=== PATIENT | male | born 1955 | race Caucasian/White ===

== ENCOUNTER 2021-02-06 13:07 | Emergency (ER) | payer SELFPAY ==
[2021-02-06 13:15] VITALS: BP 119/73; PULSE 81
[2021-02-06] MEDS ORDERED: Lidocaine 2% with EPINEPHrine 1:100,000 20 ML MDV INJECT ONE (13:25)
[2021-02-06] MEDS ORDERED: Diphtheria,Pertussis(Acell),Tetanus Vaccine 0.5 ML Syringe IM ONE (13:26)
--- NOTE | 2021-02-06 13:32 | EDM.PDOC ---
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 He can move the thumb. Denies other injuries. Right Finger-Thumb Pain Score (Numeric/FACES): 3 - Related Data Allergies Allergy/AdvReac Type Severity Reaction Status Date / Time No Known Allergies Allergy Verified 02/06/21 13:17 Home Meds: Home Meds . [No Known Home Meds] 02/06/21 [History] Past Medical History - Past Health History Medical/Surgical History: Denies Medical/Surgical History Social & Family History - Tobacco Use Tobacco Use Status *Q: Never Tobacco User ED ROS GENERAL - Review of Systems Review Of Systems: See Below Constitutional: Reports: No Symptoms HEENT: Reports: No Symptoms Respiratory: Reports: No Symptoms Cardiovascular: Reports: No Symptoms Endocrine: Reports: No Symptoms GI/Abdominal: Reports: No Symptoms : Reports: No Symptoms Musculoskeletal: Reports: Hand Pain Skin: Reports: Wound (Laceration left thumb region) Neurological: Reports: No Symptoms Psychiatric: Reports: No Symptoms Hematologic/Lymphatic: Reports: No Symptoms Immunologic: Reports: No Symptoms ED EXAM, SKIN/RASH Exam: See Below Exam Limited By: No Limitations General Appearance: Alert, WD/WN, No Apparent Distress (Elderly male , NAD.) Head: Atraumatic, Normocephalic Respiratory/Chest: No Respiratory Distress GI/Abdominal: Soft (Male) Exam: Deferred Rectal (Males) Exam: Deferred Extremities: Normal Inspection, Normal Range of Motion, Normal Capillary Refill, Other (Note 4cm crescent shaped laceration to base of left thumb on anterior aspect, some irregular edges. Bleeding when dressing removed. ROM normal to left thumb.) Neurological: Alert, Oriented, CN II-XII Intact, Normal Cognition, Normal Gait Psychiatric: Normal Affect Skin: Warm, Dry, Intact, Normal Color Course - Vital Signs Text/Narrative:: 1321 The patient was seen by the REGULATORY COMPLIANCE DIRECTOR. Xray was obtained to exclude fracture of t he bone. The laceration was repaired. See Procedure Note: Procedure Note Laceration Repair Following verbal consent of the patient, risks, benefits, and alternatives were reviewed. The wound on the left thumb was prepped with normal saline and then Betadine. Lidocaine with Epi 2% 7 ml was used for local anesthesia and digital block. A running suture of 4-0 Vicryl was placed in the subcutaneous tissues. Eight interrupted sutures of 4-0 Vicryl were used for wound closure. Dressing was applied. Wound care instructions were reviewed. The patient tolerated the procedure well. Last Tetanus was verified as February 2011. Tdap was given today. EBL=minimal 1415 The patient was given discharge instructions and left the ER in stable condition. Last Recorded V/S: Last Vital Signs Temp 36.8 C 02/06/21 13:07 Pulse 81 02/06/21 13:07 Resp 16 02/06/21 13:07 BP 119/73 02/06/21 13:07 Pulse Ox 97 02/06/21 13:07 - Orders/Labs/Meds Orders: Active Orders 24 hr Category Date Time Status Vaccines to be Administered [RC] PER UNIT ROUTINE Care 02/06/21 13:26 Ordered Fingers Thumb Lt FA [CR] Stat Exams 02/06/21 13:24 Ordered Meds: Medications Discontinued Medications Generic Name Dose Route Start Last Admin Trade Name Freq PRN Reason Stop Dose Admin Diphtheria/Tetanus/Acell Pertussis 0.5 ml 02/06/21 13:26 02/06/21 13:49 Diphtheria,Pertussis(Acell),Tetanus Vaccine 0.5 Ml Syringe IM 02/06/21 13:27 0.5 ml .ONCE ONE Administration Lidocaine/Epinephrine 20 ml 02/06/21 13:25 02/06/21 13:50 Lidocaine 2% With Epinephrine 1:100,000 20 Ml Mdv INJECT 02/06/21 13:26 20 ml ONETIME ONE Administration Departure - Departure Time of Disposition: 14:10 Disposition: Home, Self-Care 01 Condition: Good Clinical Impression: Accidental injury due to hand tool, Tetanus toxoid vaccination administered at current visit Laceration of left thumb Qualifiers: Encounter type: initial encounter Damage to nail status: without damage Foreign body presence: without foreign body Qualified Code(s): S61.012A - Laceration without foreign body of left thumb without damage to nail, initial encounter - Discharge Information *PRESCRIPTION DRUG MONITORING PROGRAM REVIEWED*: Not Applicable *COPY OF PRESCRIPTION DRUG MONITORING REPORT IN PATIENT ISSAC: Not Applicable Instructions: VIS, Tetanus, Diphtheria (Td); Tetanus, Diphtheria, Pertussis (Tdap) - CDC, Laceration Care, Adult, [id number] Forms: ED Department Discharge Sepsis Event Note (ED) - Evaluation Sepsis Screening Result: No Definite Risk - Focused Exam Vital Signs: Vital Signs Temp Pulse Resp BP Pulse Ox 02/06/21 13:07 36.8 C 81 16 119/73 97 - My Orders Last 24 Hours: My Active Orders 02/06/21 13:24 Fingers Thumb Lt FA [CR] Stat 02/06/21 13:26 Vaccines to be Administered [RC] PER UNIT ROUTINE - Assessment/Plan Last 24 Hours: My Active Orders 02/06/21 13:24 Fingers Thumb Lt FA [CR] Stat 02/06/21 13:26 Vaccines to be Administered [RC] PER UNIT ROUTINE Assessment:: 1)Right Thumb Laceration-4cm 2)S/P Intermediate Laceration Repair 3)Accidental Injury from Handtool 4)Tetanus Immunization Plan: -Ibuprofen 200mg 3 tablets oral every 6 hours as needed for pain -Acetaminophen 325mg 2-3 tablets oral every 4-6 hours as needed for pain -Keep dressing to wound dry and intact for 24 hours, then you may wash the wound daily with soap and water. -Watch for signs of infection and seek care at the clinic or ER if needed -The sutures that were placed today will dissolve over the next 2-3 weeks, so you do not need to return to the clinic for removal. Allow them to dissolve and and do note attempt to pick or cut them out for at least 2 weeks. -Your Tetanus was not updated at today's visit. Last TDap was February 2011.
--- NOTE | 2021-02-06 14:19 | CR ---
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 LACERATION ACROSS COMPARISON: None. DISCUSSION: A dressing somewhat obscures detail. No fracture or dislocation is identified. 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 IMPRESSION: 1. No acute osseous abnormality. Stewart Mckeon MD 02/06/21 [id number] Thank you for allowing us to participate in the care of your patient.
== END 2021-02-06 14:20 | disposition home or self-care (01) ==
LOC: VM.ED 13:07
DX: S61.012A Laceration without foreign body of left thumb without damage to nail, initial encounter (principal); Z23 Encounter for immunization; K21.9 Gastro-esophageal reflux disease without esophagitis; E11.9 Type 2 diabetes mellitus without complications; Z79.82 Long term (current) use of aspirin; Z79.899 Other long term (current) drug therapy; W26.8XXA Contact with other sharp object(s), not elsewhere classified, initial encounter; Y99.0 Civilian activity done for income or pay
CPT/HCPCS: 12002; 12042; 73140-FA; 90471; 90715; 99283; 99283-25

== ENCOUNTER 2021-03-15 01:40 | Emergency (ER) | payer SELFPAY ==
[2021-03-15] MEDS ORDERED: Polymyxin B/Trimethoprim 10 ML Bottle EARRT ONE (01:54)
--- NOTE | 2021-03-15 02:03 | EDM.PDOC ---
ED HPI GENERAL MEDICAL PROBLEM - General Chief Complaint: ENT Problem Stated Complaint: ear problem Time Seen by Provider: 03/15/21 01:40 Source of Information: Reports: Patient History Limitations: Reports: No Limitations - History of Present Illness INITIAL COMMENTS - FREE TEXT/NARRATIVE: Suman is a 66 year old male who presents to ER with feeling like something is crawling in his ear. States all day has had pressure in his ear, kept building and now feels like something is crawling. Denies any itching. Did not put any foreign objects like q-tips in his ears. Has had sinus congestion for about 3 days but nothing significant. NO fevers. Did not notice any popping sensation in his ear prior to coming to the ER. Has no pain or pressure now but is draining blood. Onset: Today, Gradual Duration: Hour(s): Location: Reports: Head Quality: Reports: Ache Severity: Mild Associated Symptoms: Reports: No Other Symptoms - Related Data Allergies Allergy/AdvReac Type Severity Reaction Status Date / Time No Known Allergies Allergy Verified 02/06/21 13:17 Home Meds: Home Meds . [No Known Home Meds] 02/06/21 [History] Past Medical History - Past Health History Medical/Surgical History: Denies Medical/Surgical History Social & Family History - Tobacco Use Tobacco Use Status *Q: Unknown Ever Used Tobacco ED ROS ENT - Review of Systems Review Of Systems: See Below Constitutional: Denies: Fever, Chills, Malaise, Weakness, Fatigue HEENT: Reports: Ear Discharge, Ear Pain, Rhinitis, Sinus Problem. Denies: Vertigo Respiratory: Denies: Shortness of Breath, Cough Cardiovascular: Denies: Chest Pain, Edema, Lightheadedness Endocrine: Denies: Fatigue GI/Abdominal: Denies: Abdominal Pain, Nausea, Vomiting : Reports: No Symptoms Musculoskeletal: Reports: No Symptoms Skin: Reports: No Symptoms Neurological: Reports: No Symptoms ED EXAM, ENT - Physical Exam Exam: See Below Exam Limited By: No Limitations General Appearance: Alert, WD/WN, No Apparent Distress Ears: Canal Blood (right canal has a fair amount of blood noted. TM has blood clotting, questionable perforated ear drum to the base. No foreign object noted), TM Blood Nose: Clear Rhinorrhea Mouth/Throat: Normal Inspection, Normal Oropharynx Head: Normocephalic Neck: Normal Inspection, Supple, Non-Tender Respiratory/Chest: Lungs Clear Cardiovascular: Regular Rate, Rhythm Neurological: Alert, Oriented Skin: Warm, Dry Course - Orders/Labs/Meds Meds: Medications Discontinued Medications Generic Name Dose Route Start Last Admin Trade Name Carlos PRN Reason Stop Dose Admin Polymyxin/Trimethoprim Sulfate Confirm 03/15/21 02:07 Polymyxin B/Trimethoprim 10 Ml Bottle Administered 03/15/21 02:08 Dose 10 ml .ROUTE .STK-MED ONE Polymyxin/Trimethoprim Sulfate 0 ml 03/15/21 01:54 Polymyxin B/Trimethoprim 10 Ml Bottle EARRT 03/15/21 01:55 ONETIME ONE Departure - Departure Time of Disposition: 02:00 Disposition: Home, Self-Care 01 Condition: Good Clinical Impression: Ruptured ear drum Qualifiers: Laterality: right Qualified Code(s): H72.91 - Unspecified perforation of tympanic membrane, right ear - Discharge Information *PRESCRIPTION DRUG MONITORING PROGRAM REVIEWED*: No *COPY OF PRESCRIPTION DRUG MONITORING REPORT IN PATIENT ISSAC: No Instructions: Eardrum Rupture, Adult Forms: ED Department Discharge Additional Instructions: 1. Keep ear clean and dry as able 2. Avoid putting any objects in to ear 3. Polymyxin drops 4 drops to right ear three times per day 4. Follow up in a week with your primary care provider for reevaluation of ear
[2021-03-15] MEDS ORDERED: Polymyxin B/Trimethoprim 10 ML Bottle ONE (02:07)
== END 2021-03-15 02:15 | disposition home or self-care (01) ==
LOC: VM.ED 01:40
DX: H72.91 Unspecified perforation of tympanic membrane, right ear (principal)
CPT/HCPCS: 99282; 99283; A9270-GY

== ENCOUNTER 2023-04-04 11:27 | Observation (INO) | payer MEDICARE ==
[2023-04-04 11:52] LABS: BASOPHILS PERCENT AUTO 0.2 % (0.2-1.2); EOSINOPHILS PERCENT AUTO 0.5 % (0.0-4.0); HEMOGLOBIN 12.7 g/dL (14.0-18.0); IMMATURE GRAN ABSOLUTE AUTO 0.02 x10^3/uL (0.00-0.07); LYMPHOCYTES ABSOLUTE AUTO 0.5 x10^3/uL (1.0-4.8); LYMPHOCYTES PERCENT AUTO 8.6 % (25.0-50.0); MEAN CORPUSCULAR HEMOGLOBIN 33.3 pg (26.0-32.0); MEAN CORPUSCULAR HGB CONC 33.4 g/dL (32.0-36.0); MEAN CORPUSCULAR VOLUME 99.7 fL (78.0-93.0); MONOCYTES ABSOLUTE AUTO 0.2 x10^3/uL (0.0-0.8); MONOCYTES PERCENT AUTO 4.2 % (2.0-11.0); NEUTROPHILS ABSOLUTE AUTO 4.7 x10^3/uL (1.8-7.7); NEUTROPHILS PERCENT AUTO 86.1 % (50.0-80.0); RED BLOOD CELL COUNT 3.81 x10^6/uL (4.5-6.0); WHITE BLOOD CELL COUNT,WBC 5.5 x10^3/uL (4.0-10.0)
[2023-04-04 12:01] LABS: PLATELET COUNT,PLT 154 x10^3/uL (130-400)
[2023-04-04 12:04] LABS: BILIRUBIN,URINE SMALL (NEGATIVE); COLOR,URINE AMBER (YELLOW); GLUCOSE,URINE NEGATIVE (NEGATIVE); KETONES,URINE NEGATIVE (NEGATIVE); LEUKOCYTE ESTERASE,URINE NEGATIVE (NEGATIVE); NITRITE,URINE NEGATIVE (NEGATIVE); OCCULT BLOOD,URINE LARGE (NEGATIVE); PH,URINE 5.5 (5.0-8.0); PROTEIN,URINE 30 mg/dL (NEGATIVE); UROBILINOGEN,URINE 0.2 EU/dL (0.2)
[2023-04-04 12:13] LABS: A/G RATIO 0.89; ALANINE AMINOTRANSFERASE,ALT 16 U/L (16-63); ALBUMIN 3.3 g/dL (3.4-5.0); ALKALINE PHOSPHATASE 66 U/L (46-116); ASPARTATE AMNIOTRANSFERASE,AST 10 U/L (15-37); BILIRUBIN TOTAL 0.7 mg/dL (0.2-1.0); BLOOD UREA NITROGEN,BUN 16 mg/dL (7-18); CALCIUM 8.3 mg/dL (8.5-10.1); CARBON DIOXIDE,CO2 28 mmol/L (21-32); CHLORIDE,CL 113 mmol/L (98-107); CREATININE 1.3 mg/dL (0.70-1.30); GLUCOSE RANDOM 121 mg/dL (70-99); POTASSIUM,K 4.6 mmol/L (3.5-5.1); SODIUM,NA 147 mmol/L (136-145)
[2023-04-04 12:15] LABS: ANION GAP 10.6 mmol/L (5-15); ESTIMATED GFR 61 mL/min (>=60)
[2023-04-04 12:15] LABS: APPEARANCE,URINE CLOUDY (CLEAR)
[2023-04-04 12:17] LABS: BACTERIA,URINE RARE /HPF (NOT SEEN); MUCUS,URINE MANY /LPF (NOT SEEN); RBC,URINE >100 /HPF (NOT SEEN); WBC,URINE 0-5 /HPF (NOT SEEN)
[2023-04-04] MEDS: Sodium Chloride 0.9% 1,000 ML IV ONE ×2 (12:42→15:45)
[2023-04-04] MEDS: Ketorolac 15 MG/ML SDV IVPUSH ONE (13:08)
[2023-04-04] MEDS ORDERED: Naloxone 0.4 MG/ML SDV IVPUSH PRN ×2 (13:29→15:29)
[2023-04-04] MEDS: fentaNYL 50 MCG/ML SDV IVPUSH ONE (13:33)
[2023-04-04] MEDS: Tamsulosin 0.4 MG Cap.ER PO ONE (15:17)
[2023-04-04] MEDS ORDERED: Acetaminophen 325 MG Tab PO PRN (15:22)
[2023-04-04] MEDS ORDERED: Ondansetron 4 MG Tab.DIS PO PRN (15:22)
[2023-04-04] MEDS ORDERED: Sodium Chloride 0.9% 10 ML Syringe FLUSH PRN (15:22)
[2023-04-04] MEDS: fentaNYL 50 MCG/ML SDV IVPUSH PRN (16:29)
[2023-04-04] MEDS: Sodium Chloride 0.9% 1,000 ML IV SCH (16:44)
[2023-04-04] MEDS ORDERED: Ketorolac 15 MG/ML SDV IVPUSH PRN (19:00)
[2023-04-04 22:16] VITALS: BP 115/50; PULSE 51
== END 2023-04-04 20:15 | disposition home or self-care (01) ==
LOC: VM.ED 11:27 → VM.MS 14:15
PROVIDERS: ADMIT Physician Assistant; ATTEND Physician Assistant
DX: N13.2 Hydronephrosis with renal and ureteral calculous obstruction (principal); R00.1 Bradycardia, unspecified
CPT/HCPCS: 36415; 74176; 80053; 81001; 85025; 93005; A9270-GY; J1885; J3010; J7030

== ENCOUNTER 2023-10-25 15:16 | Emergency (ER) | payer MEDICARE ==
[2023-10-25 15:26] VITALS: BP 151/80; PULSE 55
[2023-10-25 15:44] LABS: BASOPHILS PERCENT AUTO 0.2 % (0.2-1.2); EOSINOPHILS ABSOLUTE AUTO 0.1 x10^3/uL (0.0-0.5); EOSINOPHILS PERCENT AUTO 1.1 % (0.0-4.0); HEMATOCRIT 41.9 % (40.0-52.0); HEMOGLOBIN 13.9 g/dL (14.0-18.0); IMMATURE GRAN ABSOLUTE AUTO 0.01 x10^3/uL (0.00-0.07); LYMPHOCYTES ABSOLUTE AUTO 0.7 x10^3/uL (1.0-4.8); LYMPHOCYTES PERCENT AUTO 14.5 % (25.0-50.0); MEAN CORPUSCULAR HEMOGLOBIN 32.5 pg (26.0-32.0); MEAN CORPUSCULAR HGB CONC 33.2 g/dL (32.0-36.0); MEAN CORPUSCULAR VOLUME 97.9 fL (78.0-93.0); MONOCYTES ABSOLUTE AUTO 0.3 x10^3/uL (0.0-0.8); MONOCYTES PERCENT AUTO 6.6 % (2.0-11.0); NEUTROPHILS ABSOLUTE AUTO 3.6 x10^3/uL (1.8-7.7); NEUTROPHILS PERCENT AUTO 77.4 % (50.0-80.0); PLATELET COUNT,PLT 197 x10^3/uL (130-400); RED BLOOD CELL COUNT 4.28 x10^6/uL (4.5-6.0); WHITE BLOOD CELL COUNT,WBC 4.7 x10^3/uL (4.0-10.0)
[2023-10-25] MEDS: HYDROmorphone 0.5 MG/0.5 ML Syringe IVPUSH ONE (15:50)
[2023-10-25] MEDS: Lidocaine 1% 30 ML SDV INJECT ONE (15:51)
[2023-10-25 16:04] LABS: A/G RATIO 0.82; ALANINE AMINOTRANSFERASE,ALT 16 U/L (16-63); ALBUMIN 3.6 g/dL (3.4-5.0); ALKALINE PHOSPHATASE 80 U/L (46-116); ASPARTATE AMNIOTRANSFERASE,AST 11 U/L (15-37); BILIRUBIN TOTAL 0.5 mg/dL (0.2-1.0); BLOOD UREA NITROGEN,BUN 13 mg/dL (7-18); CALCIUM 8.6 mg/dL (8.5-10.1); CARBON DIOXIDE,CO2 26 mmol/L (21-32); CHLORIDE,CL 105 mmol/L (98-107); CREATININE 1.1 mg/dL (0.70-1.30); GLUCOSE RANDOM 103 mg/dL (70-99); POTASSIUM,K 3.9 mmol/L (3.5-5.1); SODIUM,NA 139 mmol/L (136-145)
[2023-10-25 16:07] LABS: ANION GAP 11.9 mmol/L (5-15); ESTIMATED GFR 74 mL/min (>=60)
== END 2023-10-25 16:35 | disposition home or self-care (01) ==
LOC: VM.ED 15:16
DX: T23.201A Burn of second degree of right hand, unspecified site, initial encounter (principal); X58.XXXA Exposure to other specified factors, initial encounter
CPT/HCPCS: 16020; 36415; 71045; 80053; 85025; 96374; 99284; J1170; J3490